=== PATIENT | male | born 1980 | race Caucasian/White ===

== ENCOUNTER 2019-04-10 16:34 | Emergency (ER) | payer BC ==
[~2019-04-10] VITALS: Ht 167.6 cm; Wt 94.8 kg
[2019-04-10 16:38] VITALS: Ht 167.6 cm; Wt 94.8 kg
[2019-04-10] MEDS ORDERED: ATEN50TA PO (17:53)
[2019-04-10] MEDS ORDERED: CLON-379 PO (20:37)
[2019-04-10] MEDS ORDERED: ATEN-51 PO (20:57)
[2019-04-10 21:02] VITALS: BP 126/75; PULSE 85; RESP 18
--- NOTE | 2019-04-23 14:27 | ERD ---
ER Documentation Chief Complaint Chief Complaint OUT OF HTN MED X 2 DAYS , FEELS DIZZY , BP @ HOME 180/112 HPI This is a 38-year-old male presents to the emergency department with a mild ba ndlike headache. The patient indicates this headache has been present for 2 days since he ran out of his blood pressure medication. The patient denies any chest pain. He has no shortness of breath at rest or exertion. He denies any abdominal pain. He states he took his blood pressure at home and it was 180/112. He states this is not the worst headache of his life. He denies any neck pain and is remained afebrile. ROS All systems reviewed and are negative except as per history of present illness. Medications Home Meds Active Scripts Atenolol* (Atenolol*) 25 Mg Tablet, 15 MG PO DAILY, #30 TAB Prov:FRANCISCO SIMONS MD 04/10/19 Clonidine Hcl* (Clonidine Hcl*) 0.1 Mg Tab, 0.1 MG PO BID PRN for ELEVATED BLOOD PRESSURE, #10 TAB Prov:FRANCISCO SIMONS MD 04/10/19 Reported Medications Atenolol* (Atenolol*) 50 Mg Tablet, 50 MG PO Q OTHER DAY, #30 TAB 04/10/19 Allergies Allergies: Coded Allergies: No Known Allergy (Unverified , 04/10/19) PMhx/Soc History of Surgery: Yes (abd sx) Hx Miscellaneous Medical Probl: Yes (htn) Hx Alcohol Use: No Hx Substance Use: No Hx Tobacco Use: No Smoking Status: Never smoker Physical Exam Physical Exam Constitutional:Well-developed. Well-nourished. HEENT:Normocephalic. Atraumatic.Pupils were equal round reactive to light. Moist mucous membranes.Fundoscopy exam showed sharp optic disks and venous pulsations are present Neck: No nuchal rigidity. No lymphadenopathy. No posterior cervical spine tenderness or step-offs. Respiratory: Not using accessory muscles of respiration.Lungs were clear to auscultation bilaterally. No rhonchi. No rales. No wheezing. Cardiovascular: Regular rate regular rhythm.No murmurs. No rubs were appreciated.S1, S2 normal. Distal pulses are palpable 2+ bilaterally. GI: Abdomen was soft. Nontender. Non Distended. No pulsatile abdominal masses or bruits. No rebound. No guarding. Bowel sounds were present and normal. NEURO: Patient was alert, awake, orientated x3.No facial droop. Gait observed and normal with no ataxia.Speech had regular rate and rhythm. No focal neurological deficits. Results 24 hrs Laboratory Tests Test 04/10/19 17:36 White Blood Count 11.6 10^3/ul Red Blood Count 5.10 10^6/ul Hemoglobin 14.9 g/dl Hematocrit 44.6 % Mean Corpuscular Volume 87.5 fl Mean Corpuscular Hemoglobin 29.2 pg Mean Corpuscular Hemoglobin Concent 33.4 g/dl Red Cell Distribution Width 13.5 % Platelet Count 191 10^3/UL Mean Platelet Volume 12.2 fl Immature Granulocytes % 0.400 % Neutrophils % 68.0 % Lymphocytes % 20.8 % Monocytes % 7.7 % Eosinophils % 2.1 % Basophils % 1.0 % Nucleated Red Blood Cells % 0.0 /100WBC Immature Granulocytes # 0.050 10^3/ul Neutrophils # 7.9 10^3/ul Lymphocytes # 2.4 10^3/ul Monocytes # 0.9 10^3/ul Eosinophils # 0.2 10^3/ul Basophils # 0.1 10^3/ul Nucleated Red Blood Cells # 0.0 10^3/ul Prothrombin Time 11.9 Sec Prothrombin Time Ratio 0.9 INR International Normalized Ratio 0.87 Activated Partial Thromboplast Time 25.4 Sec Sodium Level 141 mmol/L Potassium Level 4.2 mmol/L Chloride Level 107 mmol/L Carbon Dioxide Level 24 mmol/L Anion Gap 10 Blood Urea Nitrogen 17 mg/dl Creatinine 0.97 mg/dl Est Glomerular Filtrat Rate mL/min > 60 mL/min Glucose Level 102 mg/dl Calcium Level 9.5 mg/dl Total Bilirubin 0.4 mg/dl Direct Bilirubin 0.00 mg/dl Indirect Bilirubin 0.4 mg/dl Aspartate Amino Transf (AST/SGOT) 58 IU/L Alanine Aminotransferase (ALT/SGPT) 73 IU/L Alkaline Phosphatase 110 IU/L Creatine Kinase 251 IU/L Creatine Kinase Index 0.5 Creatinine Kinase MB (Mass) 1.15 ng/ml Troponin I < 0.012 ng/ml B-Type Natriuretic Peptide < 11 PG/ML Total Protein 7.8 g/dl Albumin 4.3 g/dl Globulin 3.50 g/dl Albumin/Globulin Ratio 1.22 Current Medications Medications Dose Sig/Shai Start Time Status Last (Trade) Ordered Route PRN Stop Time Admin Dose Reason Admin Clonidine 0.1 mg ONCE ONCE 04/10/19 Cancel (Catapres) PO 17:30 04/10/19 17:31 Procedures/MDM This patient presented to the emergency department with severely elevated blood pressure. My differential diagnosis included but was not limited to conditions that could end-organ damage such as acute coronary syndrome, acute pulmonary edema, aortic dissection, subarachnoid hemorrhage, intracerebral hemorrhage, cerebral infarction, withdrawal syndromes from beta blockers, or states of catecholamine excess such as pheochromocytoma or drug intoxication. Ancillary lab work was obtained. There was no elevation in the BUN and creat inine to suggest acute renal failure. Electrolytes were normal. Cardiac enzyme was normal and the 12 lead EKG showed no acute ischemic changes or left ventricular hypertrophy. 12 Lead EKG tracing ordered and reviewed by myself showed: Normal sinus rhythm of 68 bpm and no arrhythmia. MA interval normal. QRS duration normal. No ST segment elevation No ST segment depression. No changes consistent with acute ischemia. I obtained a chest radiograph that showed no infiltrates no pneumothorax and no pleural effusions. CT scan of the head showed no intracerebral hemorrhage mass- effect or midline shift. I did feel the patient cephalgia was likely secondary to his elevated blood pressure. This resolved in the emergency department after given clonidine. Given that the patient had an absence of cerebral, ocular, cardiac or renal damage the hypertensive urgency was treated with oral agents in the emergency room with improvement of the patient's blood pressure. The patient likely appeared to be complaint with primary care physician and will follow up with their PCP in the next 24-48 hours. They were instructed to return to the emergency department at anytime if there is any worsening of their condition such as development of chest pain or a headache. They were instructed to resume previous medication regimen or initiate a suitable medication regimen under care of the PCP to enable proper monitoring for drug reactions. The patient was also informed on the adverse side effects and adverse drug interactions of the medic ations prescribed to them by myself. The patient gave informed consent to the prescription of the new medication. Departure Diagnosis: Primary Impression: Hypertensive urgency Condition: Fair Patient Instructions: Hypertension, Established FRANCISCO SIMONS MD Apr 23, 2019 14:27
== END 2019-04-10 21:02 | disposition home or self-care (01) ==
LOC: E/R 16:34
DX: I16.0 Hypertensive urgency (principal); I10 Essential (primary) hypertension
CPT/HCPCS: 70450; 71045; 80053; 82550; 82553; 83880; 84484; 85025; 85610; 85730; 93005

== ENCOUNTER 2019-07-04 00:14 | Emergency (ER) | payer BC, OTHER ==
[~2019-07-04] VITALS: Ht 167.6 cm; Wt 95.1 kg
[~2019-07-04 00:14] MED LIST: ATEN-51 PO; ATEN50TA PO; CLON-379 PO
[2019-07-04 00:17] VITALS: Ht 167.6 cm; Wt 95.1 kg
[2019-07-04 01:39] VITALS: BP 134/83; PULSE 81; RESP 16
== END 2019-07-04 01:40 | disposition home or self-care (01) ==
LOC: E/R 00:14
DX: I10 Essential (primary) hypertension (principal); F41.9 Anxiety disorder, unspecified; R40.2142 Coma scale, eyes open, spontaneous, at arrival to emergency department; R40.2362 Coma scale, best motor response, obeys commands, at arrival to emergency department; R40.2252 Coma scale, best verbal response, oriented, at arrival to emergency department; Z76.0 Encounter for issue of repeat prescription; Z96.642 Presence of left artificial hip joint
CPT/HCPCS: 99281